=== PATIENT | male | born 1980 | race Caucasian/White ===

== ENCOUNTER 2020-09-14 13:41 | Emergency (ER) | payer SELFPAY ==
[~2020-09-14] VITALS: Ht 182.9 cm; Wt 93.0 kg
[2020-09-14 13:44] VITALS: Ht 182.9 cm; Wt 93.0 kg
[2020-09-14 14:15] VITALS: BP 146/93
== END 2020-09-14 14:15 | disposition home or self-care (01) ==
LOC: ED 13:41
DX: U07.1 COVID-19 (principal); I10 Essential (primary) hypertension
CPT/HCPCS: U0003